=== PATIENT | male | born 1980 | race Caucasian/White ===

== ENCOUNTER 2016-11-20 15:08 | Emergency (ER) | payer BC ==
[2016-11-20] MEDS ORDERED: CEFTRIAXONE INJ 1000 MG VIAL IM ONE (17:52)
--- NOTE | 2016-11-20 17:56 | ER Document Report ---
ED Extremity Problem, Lower - General Chief Complaint: Ankle Pain Stated Complaint: RIGHT ANKLE PAIN Time Seen by Provider: 11/20/16 17:41 Mode of Arrival: Ambulatory Information source: Patient Notes: This is a 36-year-old male with a history of prior left ankle fracture in 2008 with resultant problems with cellulitis and ulcerative lesions who presents with recurrent skin ulcer. He states that he is working here out of town and lives in [place]. He has been dealing with these chronic wounds for several years. This current flare has been going on for several weeks. He has noticed increased pain and redness to the area for the past 2 weeks. He denies any fevers chills or systemic symptoms. Past Medical History - Social History Smoking Status: Unknown if Ever Smoked Family History: Reviewed & Not Pertinent Renal/ Medical History: Denies: Hx Peritoneal Dialysis Physical Exam - Vital signs Vitals: Temp Pulse Resp BP Pulse Ox 98.1 F 80 16 163/100 H 100 11/20/16 15:26 11/20/16 15:26 11/20/16 15:26 11/20/16 15:26 11/20/16 15:26 Course - Vital Signs Vital signs: Temp Pulse Resp BP Pulse Ox 98.3 F 69 16 157/94 H 100 11/20/16 19:06 11/20/16 19:06 11/20/16 19:07 11/20/16 19:06 11/20/16 19:06 - Laboratory Result Diagrams: 11/20/16 18:10 11/20/16 18:10 Laboratory results interpreted by me: 11/20/16 18:54 PT 20.8 H Discharge - Discharge Clinical Impression: Traumatic leg ulcer, Cellulitis of ankle Condition: Stable Disposition: HOME, SELF-CARE Instructions: Cellulitis ([facility]), Foot or Leg Ulcer ([facility]) Additional Instructions: Follow-up at the wound care clinic in 2-3 days. Return to the emergency room immediately if symptoms worsen or any additional concerns. Prescriptions: Clindamycin HCl [Cleocin 150 mg Capsule] 450 mg PO Q6 10 Days Oxycodone HCl/Acetaminophen [Percocet 5-325 mg Tablet] 1 - 2 tab PO ASDIR PRN # 15 tablet PRN Reason: Warfarin Sodium [Coumadin] 10 mg PO DAILY #30 tablet Warfarin Sodium [Coumadin] 2.5 mg PO DAILY #3 tablet Forms: Smoking Cessation Education
[2016-11-20] MEDS ORDERED: LIDOCAINE 1% INJ-PF (10 MG/ML) 30 ML SDV ONE (18:04)
[2016-11-20 18:29] LABS: ABSOLUTE EOSINOPHILS # (AUTO) 0.1 10^3/uL (0.0-0.6); ABSOLUTE LYMPHOCYTES (AUTO) 1.6 10^3/uL (0.5-4.7); ABSOLUTE MONOCYTES (AUTO) 0.5 10^3/uL (0.1-1.4); ABSOLUTE NEUT (AUTO) 3.6 10^3/uL (1.7-8.2); BASOPHILS % (AUTO) 0.5 % (0-2); EOSINOPHILS % (AUTO) 1.9 % (0-6); HEMATOCRIT 43.2 % (37.9-51.0); HEMOGLOBIN 14.6 g/dL (13.5-17.0); HGB HCT DIFFERENCE 0.6; LYMPHOCYTES % (AUTO) 26.9 % (13-45); MEAN CORPUSCULAR HEMOGLOBIN 29.5 pg (27.0-33.4); MEAN CORPUSCULAR HGB CONC 33.7 g/dL (32.0-36.0); MEAN CORPUSCULAR VOLUME 88 fl (80-97); MONOCYTES % (AUTO) 8.3 % (3-13); RED BLOOD COUNT 4.93 10^6/uL (4.35-5.55); RED CELL DISTRIBUTION WIDTH 13.6 % (11.5-14.0); SEGMENTED NEUTROPHILS % (AUTO) 62.4 % (42-78); WHITE BLOOD COUNT 5.8 10^3/uL (4.0-10.5)
[2016-11-20 18:47] LABS: ANION GAP 6 (5-19); BLOOD UREA NITROGEN 13 mg/dL (7-20); CALCIUM 9.3 mg/dL (8.4-10.2); CARBON DIOXIDE 29 mmol/L (22-30); CHLORIDE 103 mmol/L (98-107); CREATININE RESULT 0.96 mg/dL (0.52-1.25); GLUCOSE 94 mg/dL (75-110); SODIUM 137.5 mmol/L (137-145)
[2016-11-20 19:08] VITALS: BP 157/94
[2016-11-20 19:10] LABS: PROTHROMBIN TIME 20.8 SEC (11.4-15.4)
--- NOTE | 2016-11-20 19:18 | ER Document Report ---
ED Extremity Problem, Lower - General Chief Complaint: Ankle Pain Stated Complaint: RIGHT ANKLE PAIN Time Seen by Provider: 11/20/16 17:41 Mode of Arrival: Ambulatory Information source: Patient - HPI Patient complains to provider of: Pain, Swelling Location: Ankle Occurred: Other - 2 months Onset/Duration: Gradual, Persistent Quality of pain: Achy Severity: Moderate Pain Level: 3 Recent injury: No Exacerbated by: Movement Relieved by: Nothing Notes: Patient is a 36-year-old male presents to the emergency room complaining of pain and swelling with ulcerations to the right medial ankle, the symptoms have been worsening over the past 2 months, patient has had intermittent symptoms similar in the past since 2008 when he fell and injured his ankle, causing a fracture to the medial malleolus, he is currently working in the [place] area but resides in [place], he does not have a physician in the area, denies any new injury or trauma, over the past 2 months he has had increasing ulcerations with erythema and swelling to the area as well as pain, 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, he denies missing any doses of this recently, no fevers Past Medical History - General Information source: Patient - Social History Smoking Status: Current Every Day Smoker Chew tobacco use (# tins/day): No Frequency of alcohol use: Occasional Drug Abuse: None Family History: Reviewed & Not Pertinent Renal/ Medical History: Denies: Hx Peritoneal Dialysis Surgical Hx: Negative - Immunizations Hx Diphtheria, Pertussis, Tetanus Vaccination: No Review of Systems - Review of Systems Constitutional: No symptoms reported EENT: No symptoms reported Cardiovascular: No symptoms reported Respiratory: No symptoms reported Gastrointestinal: No symptoms reported Genitourinary: No symptoms reported Male Genitourinary: No symptoms reported Musculoskeletal: No symptoms reported Skin: See HPI Hematologic/Lymphatic: No symptoms reported Neurological/Psychological: No symptoms reported -: Yes All other systems reviewed and negative Physical Exam - Vital signs Vitals: Temp Pulse Resp BP Pulse Ox 98.1 F 80 16 163/100 H 100 11/20/16 15:26 11/20/16 15:26 11/20/16 15:26 11/20/16 15:26 11/20/16 15:26 - Notes Notes: - General General appearance: Appears well, Alert In distress: None - HEENT Head: Normocephalic, Atraumatic Eyes: Normal Conjunctiva: Normal Extraocular movements intact: Yes Eyelashes: Normal Pupils: PERRL - Respiratory Respiratory status: No respiratory distress - Cardiovascular Rhythm: Regular - Abdominal Inspection: Normal - Back Back: Normal - Extremities General upper extremity: Normal inspection General lower extremity: Right medial malleolus with erythema and mild swelling , 2 3 cm ulcerations that are scabbed, necrotic centrally, no fluctuance, no drainage, tender to palpate, distal sensation and motor is intact with 2+ DP pulses - Neurological Neuro grossly intact: Yes Orientation: AAOx4 [place] Coma Scale Eye Opening: Spontaneous Malini Coma Scale Verbal: Oriented [place] Coma Scale Motor: Obeys Commands [place] Coma Scale Total: 15 - Psychological Associated symptoms: Normal affect, Normal mood - Skin Skin Temperature: Warm Skin Moisture: Dry Skin Color: Normal Course - Re-evaluation Re-evalutation: 11/20/16 19:16 With chronic traumatic nonhealing ulcers to the right medial malleolus, they appear to have a component of cellulitis today, therefore he was started on antibiotics and provided with pain medication as well as information for follow- up with the wound care clinic, advised to return if symptoms worsen, patient acknowledges understanding and agreement with this plan - Vital Signs Vital signs: Temp Pulse Resp BP Pulse Ox 98.3 F 69 16 157/94 H 100 11/20/16 19:06 11/20/16 19:06 11/20/16 19:07 11/20/16 19:06 11/20/16 19:06 - Laboratory Result Diagrams: 11/20/16 18:10 11/20/16 18:10 Laboratory results interpreted by me: 11/20/16 18:54 PT 20.8 H Discharge - Discharge Clinical Impression: Cellulitis of ankle Traumatic leg ulcer Qualifiers: Laterality: right Non-pressure ulcer stage: limited to breakdown of skin Qualified Code(s): L97.911 - Non-pressure chronic ulcer of unspecified part of right lower leg limited to breakdown of skin Condition: Stable Disposition: HOME, SELF-CARE Instructions: Cellulitis ([facility]), Foot or Leg Ulcer ([facility]) Additional Instructions: Follow-up at the wound care clinic in 2-3 days. Return to the emergency room immediately if symptoms worsen or any additional concerns. Prescriptions: RX: Clindamycin HCl [Cleocin 150 mg Capsule] 450 mg PO Q6 10 Days Oxycodone HCl/Acetaminophen [Percocet 5-325 mg Tablet] 1 - 2 tab PO ASDIR PRN # 15 tablet PRN Reason: Warfarin Sodium [Coumadin] 10 mg PO DAILY #30 tablet Warfarin Sodium [Coumadin] 2.5 mg PO DAILY #3 tablet Forms: Smoking Cessation Education
== END 2016-11-20 19:33 | disposition home or self-care (01) ==
LOC: ER 15:08
DX: L03.115 Cellulitis of right lower limb (principal); L97.911 Non-pressure chronic ulcer of unspecified part of right lower leg limited to breakdown of skin; M25.571 Pain in right ankle and joints of right foot; M79.89 Other specified soft tissue disorders; F17.200 Nicotine dependence, unspecified, uncomplicated
CPT/HCPCS: 99283; 96372; 36415; 85025; 85610; 80048; J3490; J0696